=== PATIENT | male | born 1970 | race Caucasian/White ===

== ENCOUNTER 2019-04-17 22:02 | Emergency (ER) | payer SELFPAY, OTHER ==
[2019-04-17] MEDS: HYDROCODONE/APAP (10/325) TAB PO (22:33)
[2019-04-17] MEDS: KETOROLAC 60 MG INJ IM (22:34)
== END 2019-04-18 00:39 | disposition home or self-care (01) ==
LOC: E/R 04-18 00:39
DX: S40.011A Contusion of right shoulder, initial encounter (principal); W18.39XA Other fall on same level, initial encounter; Y92.9 Unspecified place or not applicable
CPT/HCPCS: 73030; 73030-RT; 96372; 99284-25